=== PATIENT | male | born 2000 | race Two or more races ===

== ENCOUNTER 2023-01-01 21:38 | Emergency (ER) | payer OTHER, SELFPAY ==
--- NOTE | ~2023-01-01 | XR_ITS ---
EXAMINATION: XR shoulder LT min 2V DATE: 01/01/2023 23:00 INDICATION: Postreduction left shoulder dislocation TECHNIQUE: AP externally rotated and transscapular Y views of the left shoulder were obtained. COMPARISON: 01/01/2023 at 9:56 PM FINDINGS: Successful reduction of the previously dislocated glenohumeral joint. Alignment is now normal. No fra cture identified. Acromioclavicular joint is normal. Soft tissues are unremarkable. IMPRESSION: Successful reduction of the previously anteriorly dislocated left glenohumeral joint. No fracture tawana ntified. Reviewed, dictated and finalized at location A. 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 No fracture identified.
--- NOTE | ~2023-01-01 | XR_ITS ---
EXAMINATION: XR shoulder LT min 2V DATE: 01/01/2023 21:58 INDICATION: Left shoulder dislocation TECHNIQUE: AP internally and externally rotated, AP oblique externally rotated and transscapular Y vi ews of the left shoulder were obtained. COMPARISON: None FINDINGS: Anterior dislocation of the left humeral head relative to the glenoid. There is suggestion of a promi nent Hill-Sachs fracture trough at the posterior aspect of the humeral head is perched upon the anter oinferior rim of the glenoid. Acromioclavicular joint is normal. Visualized portion of the lungs are clear. Soft tissues are unremarkable. IMPRESSION: Anterior left glenohumeral dislocation with suggestion of an associated Hill-Sachs fracture trough at the humeral head. Reviewed, dictated and finalized at location A. 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
[2023-01-01 21:38] VITALS: BP 128/89; PULSE 105; RESP 18; TEMP 37.1; O2SAT 100
--- NOTE | 2023-01-01 22:50 | PC.NURSE ---
pt states his shoulder popped back in place. erp aware. x-ray ordered.
--- NOTE | 2023-01-01 22:51 | ED.GENADULT ---
HPI - General Adult General Chief complaint: Extremity Injury, Upper Stated complaint: L shoulder deformity History of Present Illness HPI narrative: This is a 22-year-old male with history of shoulder dislocation presenting to ED with shoulder pain. Patient was playing bags when he threw the connor bag and felt the shoulder go out of place. This is after multiple times in the past. He was then brought to the hospital by EMS. EMS gave him a sling and 4 mg of morphine EN route. Patient denies any other injuries. Related Data Allergies Allergy/AdvReac Type Severity Reaction Status Date / Time No Known Allergies Allergy Verified 01/01/23 21:46 [facility] Past Medical History Medical History Shoulder dislocation Social History Social History (Updated 01/01/23 @ 22:53 by Christiano Najera MD) Social History: Denies use of drugs alcohol or tobacco Exam Narrative: APPEARANCE: No apparent distress. Head: atraumatic. EYES: EOMI, NOSE: Atraumatic NECK: Trachea midline RESPIRATORY: No increased rate of breathing CARDIOVASCULAR: RRR, ABDOMINAL: Non-distended MUSCULOSKELETAl: deformity of the left shoulder, no numbness over the lateral deltoid, patient is able to give a thumbs-up okay sign and dorsiflex his wrist against pressure. NEURO: Alert. Moving 4/4 extremities SKIN:: Warm, dry. Normal color PSYCHIATRIC: Normal affect Course Vital Signs Vital signs: Vital Signs Temperature 98.7 F 01/01/23 21:38 Pulse Rate 105 H 01/01/23 21:38 Respiratory Rate 18 01/01/23 21:38 Blood Pressure 128/89 01/01/23 21:38 Pulse Oximetry 100 01/01/23 21:38 Oxygen Delivery Room Air 01/01/23 21:38 Temperature 98.7 F 01/01/23 21:38 Pulse Rate 105 H 01/01/23 21:38 Respiratory Rate 18 01/01/23 21:38 Blood Pressure 128/89 01/01/23 21:38 Pulse Oximetry 100 01/01/23 21:38 Oxygen Delivery Room Air 01/01/23 21:38 Medical Decision Making [facility] Narrative Medical decision making narrative: -Presentation: 22-year-old male presenting with dislocated shoulder -DDX includes but is not limited to: dislocated shoulder, shoulder strain, humerus fracture -Co-morbidities complicating care: repeated shoulder dislocations -Social determinants of health: patient is a student -External Chart Review: none -Hx from independent Sources: none -Discussion of Management/Consultants: none -Independent interpretation of studies: initial shoulder x-ray showed anterior shoulder dislocation with possible Hill-Sachs deformity. Patient is given pain medication. His shoulder self-reduced. Repeat x-ray showed successful reduction. Dx tests considered but not ordered None: -Procedures: none -Interventions: none -Shared decision making / Disposition: patient was informed his results. He was placed in a sling. He is given Orthopedic follow-up. Patient has been advised not to use arm until he has been cleared by orthopedics. Patient has verbalized understanding. -RX - Motrin Tylenol Vital Signs Vital Signs: Vital Signs Temperature 98.7 F 01/01/23 21:38 Pulse Rate 105 H 01/01/23 21:38 Respiratory Rate 18 01/01/23 21:38 Blood Pressure 128/89 01/01/23 21:38 Pulse Oximetry 100 01/01/23 21:38 Oxygen Delivery Room Air 01/01/23 21:38 Temperature 98.7 F 01/01/23 21:38 Pulse Rate 105 H 01/01/23 21:38 Respiratory Rate 18 01/01/23 21:38 Blood Pressure 128/89 01/01/23 21:38 Pulse Oximetry 100 01/01/23 21:38 Oxygen Delivery Room Air 01/01/23 21:38 Discharge Plan Discharge Clinical Impression: Shoulder dislocation Patient Disposition: Home, Self-Care Condition: Stable Instructions: Antibiotic Form, Shoulder Dislocation (ED) Additional Instructions: You were seen in the emergency department for a shoulder dislocation. Your shoulder self reduced. Please wear sling and follow-up with ort
== END 2023-01-01 23:45 | disposition home or self-care (01) ==
PROVIDERS: Emergency Provider Emergency Medicine
DX: S43.015A Anterior dislocation of left humerus, initial encounter (principal); X50.9XXA Other and unspecified overexertion or strenuous movements or postures, initial encounter
CPT/HCPCS: 23650; 73030; 99283; 99285; J2795